=== PATIENT | female | born 1960 | race Caucasian/White ===

== ENCOUNTER 2016-11-20 06:12 | Day surgery (SDC) | payer BC ==
[2016-11-18 20:41] LABS: BASOPHILS 0.4 %; BASOPHILS ABSOLUTE 0.03 10/3/uL (0.0-0.16); EOSINOPHILS 1.6 %; EOSINOPHILS ABSOLUTE 0.13 10/3/uL (0.0-0.53); HEMATOCRIT 42.4 % (36.0-48.0); HEMOGLOBIN 14.3 g/dL (12.0-16.0); IMMATURE GRANULOCYTES 0.1 %; IMMATURE GRANULOCYTES ABSOLUTE 0.01 10/3/uL (0.0-0.11); LYMPHOCYTES 24.3 %; LYMPHOCYTES ABSOLUTE 1.94 10/3/uL (0.67-4.30); MANUAL DIFF NO %; MEAN CORPUS HGB CONC 33.7 g/dL (32.0-36.0); MEAN CORPUSCULAR HEMOGLOB 29.7 pg (26.0-34.0); MEAN CORPUSCULAR VOLUME 88.1 fL (80-100); MONOCYTES ABSOLUTE 0.64 10/3/uL (0.21-1.20); NEUTROPHILS 65.6 %; NEUTROPHILS ABSOLUTE 5.22 10/3/uL (2.02-8.40); PLATELET COUNT 266 10/3/uL (150-400); RBC DISTRIBUTION WIDTH 13.1 % (12.0-16.0); RED CELL COUNT 4.81 10/6/uL (4.0-5.6)
[2016-11-18 21:22] LABS: A/G RATIO 1.2 (0.7-1.9); ALKALINE PHOSPHATASE 63 U/L (45-117); BUN (BLOOD UREA NITROGEN) 10 MG/DL (6-23); CALCIUM, SERUM 9.4 MG/DL (8.5-10.4); CHLORIDE, SERUM 99 MMOL/L (96-112); CO2 (CARBON DIOXIDE) 26 MMOL/L (24-34); CREATININE 0.68 MG/DL (0.55-1.02); GFR AFRICAN AMERICAN 113 ML/MIN (>=60); GFR NON AFRICAN AMERICAN 97 ML/MIN (>=60); GLOBULIN 3.4 G/DL (2.5-4.1); GLUCOSE, SERUM 169 MG/DL (60-99); POTASSIUM, SERUM 4.5 MMOL/L (3.5-5.3); SGOT(AST) 43 U/L (5-40); SGPT(ALT) 64 U/L (5-65); SODIUM, SERUM 137 MMOL/L (135-148); TOTAL BILIRUBIN 0.4 MG/DL (0-1.2); TOTAL PROTEIN 7.4 G/DL (6.0-8.5)
--- NOTE | ~2016-11-20 | OP ---
Record Of Operation [facility] [address] [place]. 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 PROCEDURE: Resection of large mass from right scapula. SURGEON: Wendy Morris M.D. ANESTHESIA: General with intubation. COMPLICATIONS: None. ESTIMATED BLOOD LOSS: Less than 5 mL. SPECIMENS: Mass over the right scapula. DRAINS: Nikita-Gan in subcutaneous tissue. LAP AND SPONGE COUNT: Correct x3. BRIEF HISTORY: This 55-year-old female presented with an enlarging symptomatic soft tissue neoplasm over the right scapula. The mass was as long as the scapula itself. It was felt that resection of this was indicated for both diagnostic and therapeutic reasons. This procedure, the risks, benefits, and alternatives, including but not limited to the risk for bleeding, infection, pain, swelling, scarring or deformity of the area, seroma formation, hematoma formation, nerve injury, chronic paresthesia or pain in the involved area, spinal accessory nerve injury with muscle weakness or paralysis to the muscles of the upper back or shoulder, and unforeseen complications including deep venous thrombosis, pulmonary embolus, myocardial infarction, stroke, pneumonia, anesthetic complications, and were fully explained to the patient prior to the surgery. Her questions were answered. She understood the risks and agreed to the surgery as planned. DESCRIPTION OF PROCEDURE: After being properly identified and after discussing the risks of surgery with her again in the preoperative area, and after marking the area of concern with a skin marker with her help in the preoperative area, the patient was taken to the operating room and placed in the supine position on a stretcher adjacent to the operating room table. General anesthesia was administered. She was intubated without difficulty. She was then carefully rolled into the prone position on the operating room table. This was done very carefully and meticulously. Appropriate pads were placed beneath her chest and extremities. The patient is extremely obese and this was done very carefully and meticulously. The back was prepped and draped sterilely in the usual fashion. After an appropriate "time- out" per [employer] standards, a vertical incision was made directly over the mass over the right Record Of Operation [facility] [id number] [place]. [address] NAME: CHENG WALLACE : 56 STATUS : REG [facility]#: [id number] AGE: 55 ADM/REG DATE : 11/20/16 MR#: [id number] REPORT SERV DATE: 11/20/16 DICTATED BY: WENDY MORRIS III DATE: 11/20/16 REPORT STATUS : Draft TRANSCRIBED BY: MARK DATE: 11/20/16 scapula. The incision was continued through the subcutaneous tissue. Hemostasis was controlled with the cautery. A large subcutaneous mass was identified. This was completely resected. This was fairly well-defined mass. The dissection was continued down to the fascia. The entire mass was resected. It was some 8 cm in diameter. At no point any neurovascular structures were encountered or injured. The mass was completely removed and sent for permanent pathology. The wound was irrigated copiously with saline. Hemostasis was assured. A Nikita-Gan drain was brought through a separate stab wound, and placed in the subcutaneous tissue. The subcutaneous tissue was closed with interrupted 2-0 Vicryl sutures. The skin was closed with a running subcuticular 4-0 Monocryl stitch. The incision was injected with 0.5% Marcaine. Dressings were applied. Anesthesia was reversed, and the patient was taken to the recovery room in stable condition. She tolerated the procedure well. Her family was informed the results of the surgery. The patient will be discharged later when stable and comfortable. Her family and the patient will be instructed on the care and emptying of the CARLOS drain. She has been advised not to drive for three to four days after surgery or use narcotics, and to resume her usual medications. She has been asked to return in one week for followup or sooner if any fever, chills, wound drainage, or other problems prior to that time. She was advised not to do any strenuous activity for several weeks. She was given a prescription for Percocet 7.5 one t.i.d., #12, as needed for pain, which she was advised not to use while driving. RHJ/MODL Wendy Morris III, M.D. / [id number] CC: Luann Vargas III, M.D.
--- NOTE | ~2016-11-20 | PREOPHP ---
PreOp History and Physical [address] [address] NAME: CHENG WALLACE : 56 [place] [facility] [place] [id number] AGE: 55 ADM/REG DATE : MR#: [id number] REPORT SERV DATE: 11/19/16 DICTATED BY: WENDY MORRIS III DATE: 11/11/16 REPORT STATUS : Draft TRANSCRIBED BY: MODL DATE: 11/11/16 HISTORY OF PRESENT ILLNESS: This 55-year-old female comes to the operating room for resection of a large mass over her right scapula. The patient has a large mass over her right scapula which has been present for five to six years. The mass has been increasing in size and symptomatic in terms of local pain and discomfort. The patient comes now for resection of this large mass. PAST MEDICAL HISTORY: 1. Hypertension. 2. Obesity. 3. Diabetes mellitus. 4. Osteoarthritis. 5. Obstructive sleep apnea. 6. Diverticulosis. MEDICATIONS: Metformin, nabumetone, Benicar, and aspirin. ALLERGIES: NONE. FAMILY HISTORY: Positive for uterine cancer and breast cancer. SOCIAL HISTORY: No history of tobacco or alcohol use. REVIEW OF SYSTEMS: The patient complains of pain over her right shoulder and joint pain and swelling. Her 14- point review of systems is otherwise unremarkable. PHYSICAL EXAMINATION: GENERAL: This is an obese female, in no acute distress. She is alert and oriented x3. VITAL SIGNS: Blood pressure 152/81, pulse 114, and temp 98.9. HEENT: Unremarkable. Cranial nerves 2 through 12 are normal. LUNGS: Clear. CARDIAC: Normal. NECK: Unremarkable. No adenopathy. Over the right scapula, there is a large mass. This mass is some 6 to 8 cm in size. It is discrete, mobile, and nontender. EXTREMITIES: Normal. ASSESSMENT: 1. A 55-year-old female with enlarging symptomatic soft tissue neoplasm over the right shoulder, which is very large. 2. Hypertension. 3. Obesity. 4. Diabetes mellitus. 5. Osteoarthritis. 6. Obstructive sleep apnea. 7. Diverticulosis. PreOp History and Physical [address] [address] NAME: CHENG WALLACE : 56 STATUS : PRE [facility]#: [id number] AGE: 55 ADM/REG DATE : MR#: [id number] REPORT SERV DATE: 11/19/16 DICTATED BY: WENDY MORRIS III DATE: 11/11/16 REPORT STATUS : Draft TRANSCRIBED BY: MARK DATE: 11/11/16 PLAN: The patient comes to the operating room now for resection of this large mass. This procedure, the risks, benefits, and alternatives, including not limited to the risk for bleeding, infection, pain, swelling, scarring, deformity to the area, seroma formation, hematoma formation, nerve injury, chronic paresthesia or pain, numbness, neuralgia or neuroma, spinal accessory injury with muscle weakness or paralysis in muscles of upper back or shoulder, and unforeseen complications including deep venous thrombosis, pulmonary embolus, myocardial infarction, stroke, pneumonia, and , have been explained to the patient prior to surgery. Her questions have been answered. She understands the risks and agrees to surgery as planned. RHJ/MARK Wendy Morris III, M.D. / [id number] CC: Chani Simental M.D.
[~2016-11-20 06:12] MED LIST: ASA5GR PO; BENICAR HCT1 TA2 PO; CELEBREX2 PO; COUMADIN4 MG; GLUCPH PO; HYDROCHLOROTHIAZIDE PO; NABUMETONE750 MG PO; OLMESARTAN PO; OSTEO BI-FLEX1 EACH PO; OXYCON10; PCET PO; TYLENOL ARTH650 MG PO
== END 2016-11-20 17:25 | disposition home or self-care (01) ==
LOC: SDC 06:12
PROVIDERS: Surgery
PROC: 0JBD0ZX Excision of Right Upper Arm Subcutaneous Tissue and Fascia, Open Approach, Diagnostic (ICD-10-PCS; principal; 2016-11-20 08:00)
DX: E65 Localized adiposity (principal); I10 Essential (primary) hypertension; E66.9 Obesity, unspecified; E11.9 Type 2 diabetes mellitus without complications; M19.90 Unspecified osteoarthritis, unspecified site; G47.33 Obstructive sleep apnea (adult) (pediatric); E78.5 Hyperlipidemia, unspecified; Z79.899 Other long term (current) drug therapy; Z79.82 Long term (current) use of aspirin; Z80.3 Family history of malignant neoplasm of breast; Z80.49 Family history of malignant neoplasm of other genital organs; Z68.42 Body mass index [BMI] 45.0-49.9, adult; Z98.890 Other specified postprocedural states
CPT/HCPCS: 36415; 71020; 80053; 82962; 85025; 88307; 93005; A9270-GY; J0330; J0690; J2250; J2370; J2405; J3010